=== PATIENT | female | born 1985 | race Caucasian/White ===

== ENCOUNTER 2021-02-15 20:11 | Emergency (ER) | payer SELFPAY ==
[~2021-02-15] VITALS: Ht 144.8 cm; Wt 73.0 kg
[~2021-02-15 20:11] MED LIST: METF-414
[2021-02-15] MEDS ORDERED: SODIUM CHLORIDE 0.9% 1,000 ML IV ONE (22:30)
[2021-02-15 22:56] LABS: BASOPHILS % 0.8 % (0.0-2.0); EOSINOPHILS % 2.1 % (0.0-5.0); HEMATOCRIT. 36.2 % (36.0-48.0); HEMOGLOBIN. 12.7 g/dL (12.0-16.0); LYMPHOCYTES % 37.5 % (20.0-50.0); MEAN CORPUSCULAR VOLUME 94.4 fL (81.0-99.0); MONOCYTES % 7.1 % (2.0-8.0); NEUTROPHILS % 52.5 % (40.0-76.0); PLATELET 243 x1000/uL (130-400); RED BLOOD CELL COUNT 3.83 mill/uL (4.2-5.4); RED CELL DISTRIBUTION WIDTH 12.5 % (11.6-14.6)
[2021-02-15 23:02] LABS: CHLORIDE 104 mEq/L (98-107)
[2021-02-15 23:06] LABS: PROTHROMBIN TIME 10.9 sec (9.6-11.0)
[2021-02-15 23:26] LABS: B-HCG QUANTITATIVE 50957 mIU/mL (<3)
[2021-02-15 23:30] VITALS: BP 115/69
[2021-02-15 23:45] LABS: CLARITY URINE CLEAR (CLEAR); COLOR URINE YELLOW (YELLOW); KETONES URINE TRACE (NEGATIVE); LEUKOCYTE ESTERASE URINE NEGATIVE (NEGATIVE); NITRITE URINE NEGATIVE (NEGATIVE); OCCULT BLOOD URINE NEGATIVE (NEGATIVE); PH URINE 5.5 (4.5-8.0); PROTEIN URINE NEGATIVE (NEGATIVE); SPECIFIC GRAVITY URINE 1.036 (1.005-1.030)
[2021-02-15 23:56] LABS: *AMPHETAMINES SCREEN URINE NEGATIVE (NEGATIVE); *BARBITURATES SCREEN URINE NEGATIVE (NEGATIVE); *BENZODIAZEPINES SCREEN URINE NEGATIVE (NEGATIVE); *COCAINE SCREEN URINE NEGATIVE (NEGATIVE)
[2021-02-15 23:57] LABS: CANNABINOID URINE SCREEN NEGATIVE (NEGATIVE); METHADONE URINE SCREEN NEGATIVE (NEGATIVE); OPIATES URINE SCREEN NEGATIVE (NEGATIVE); PHENCYCLIDINE URINE SCREEN NEGATIVE (NEGATIVE)
== END 2021-02-16 01:03 | disposition home or self-care (01) ==
LOC: ER 20:11
DX: O26.891 Other specified pregnancy related conditions, first trimester (principal); E11.9 Type 2 diabetes mellitus without complications; Z98.890 Other specified postprocedural states
CPT/HCPCS: 36415; 76801; 80053; 80305; 81003; 81025; 84702; 85025; 85610; 86850; 86900; 86901; 99284; J7030

== ENCOUNTER 2021-02-17 19:20 | Emergency (ER) | payer SELFPAY ==
[~2021-02-17] VITALS: Ht 157.5 cm; Wt 82.0 kg
[2021-02-17] MEDS ORDERED: SODIUM CHLORIDE 0.9% 1,000 ML IV ONE (20:00)
[2021-02-17 20:53] LABS: BASOPHILS % 0.7 % (0.0-2.0); EOSINOPHILS % 1.8 % (0.0-5.0); HEMATOCRIT. 36.5 % (36.0-48.0); HEMOGLOBIN. 12.6 g/dL (12.0-16.0); LYMPHOCYTES % 37.8 % (20.0-50.0); MEAN CORPUSCULAR HEMOGLOBIN 32.8 pg (28.0-32.0); MEAN CORPUSCULAR VOLUME 94.7 fL (81.0-99.0); MEAN PLATELET VOLUME 9.3 fl (7.4-10.4); MONOCYTES % 7.5 % (2.0-8.0); NEUTROPHILS % 52.2 % (40.0-76.0); PLATELET 269 x1000/uL (130-400); RED BLOOD CELL COUNT 3.86 mill/uL (4.2-5.4); RED CELL DISTRIBUTION WIDTH 12.7 % (11.6-14.6)
[2021-02-17 20:59] LABS: CHLORIDE 105 mEq/L (98-107)
[2021-02-17 21:00] LABS: INR 0.9; PROTHROMBIN TIME 10.2 sec (9.6-11.0)
[2021-02-17 21:41] LABS: B-HCG QUANTITATIVE 49740 mIU/mL (<3)
[2021-02-17 21:44] LABS: CLARITY URINE CLEAR (CLEAR); COLOR URINE YELLOW (YELLOW); KETONES URINE NEGATIVE (NEGATIVE); LEUKOCYTE ESTERASE URINE NEGATIVE (NEGATIVE); NITRITE URINE NEGATIVE (NEGATIVE); OCCULT BLOOD URINE 1+ (NEGATIVE); PH URINE 6.5 (4.5-8.0); PROTEIN URINE NEGATIVE (NEGATIVE); SPECIFIC GRAVITY URINE 1.016 (1.005-1.030); UROBILINOGEN URINE 0.2 E.U./dL (0.2-1.0)
[2021-02-17 23:59] VITALS: BP 105/73
== END 2021-02-18 01:07 | disposition home or self-care (01) ==
LOC: ER 19:20
DX: O20.0 Threatened abortion (principal); O24.311 Unspecified pre-existing diabetes mellitus in pregnancy, first trimester; E11.65 Type 2 diabetes mellitus with hyperglycemia; Z3A.12 12 weeks gestation of pregnancy; Z98.890 Other specified postprocedural states
CPT/HCPCS: 36415; 76801; 80053; 81003; 81025; 84702; 85025; 85610; 86850; 86900; 86901; 96360; 99284; J7030

== ENCOUNTER 2021-07-04 07:27 | Inpatient (IN) | payer MEDICAID ==
[~2021-07-04] VITALS: Ht 144.8 cm; Wt 79.4 kg
[2021-07-04] MEDS ORDERED: MISOPROSTOL 100MCG TABLET VG SCH (08:15)
[2021-07-04] MEDS ORDERED: LIDOCAINE HCL 1% 20ML VIAL (Pyxis) INJ INFIL SCH (08:15)
[2021-07-04] MEDS ORDERED: NALOXONE HCL 0.4 MG/ML 1ML VIAL IM PRN (08:15)
[2021-07-04] MEDS ORDERED: BUTORPHANOL TARTRATE 2 MG/ML VIAL IV PRN (08:15)
[2021-07-04] MEDS ORDERED: AMPICILLIN 2GM in NS 100ML 100 ML IV SCH (09:00)
[2021-07-04 09:17] LABS: BASOPHILS % 0.6 % (0.0-2.0); EOSINOPHILS % 1.1 % (0.0-5.0); HEMATOCRIT. 32.6 % (36.0-48.0); MEAN CORPUSCULAR HEMOGLOBIN 29.9 pg (28.0-32.0); MEAN CORPUSCULAR VOLUME 88.5 fL (81.0-99.0); MEAN PLATELET VOLUME 10.3 fl (7.4-10.4); MONOCYTES % 6.3 % (2.0-8.0); PLATELET 160 x1000/uL (130-400); RED BLOOD CELL COUNT 3.69 mill/uL (4.2-5.4); RED CELL DISTRIBUTION WIDTH 12.4 % (11.6-14.6)
[2021-07-04 09:26] LABS: CLARITY URINE CLEAR (CLEAR); COLOR URINE YELLOW (YELLOW); KETONES URINE NEGATIVE (NEGATIVE); LEUKOCYTE ESTERASE URINE NEGATIVE (NEGATIVE); NITRITE URINE NEGATIVE (NEGATIVE); OCCULT BLOOD URINE NEGATIVE (NEGATIVE); PH URINE 6.5 (4.5-8.0); PROTEIN URINE 1+ (NEGATIVE); UROBILINOGEN URINE 0.2 E.U./dL (0.2-1.0)
[2021-07-04 09:31] LABS: INR 0.9; PARTIAL THROMBOPLASTIN TIME 27.9 sec (23.4-31.0); PROTHROMBIN TIME 10.1 sec (9.6-11.0)
[2021-07-04 09:48] LABS: *AMPHETAMINES SCREEN URINE NEGATIVE (NEGATIVE); *BARBITURATES SCREEN URINE NEGATIVE (NEGATIVE); *BENZODIAZEPINES SCREEN URINE NEGATIVE (NEGATIVE)
[2021-07-04 09:49] LABS: *COCAINE SCREEN URINE NEGATIVE (NEGATIVE); METHADONE URINE SCREEN NEGATIVE (NEGATIVE); OPIATES URINE SCREEN NEGATIVE (NEGATIVE); PHENCYCLIDINE URINE SCREEN NEGATIVE (NEGATIVE)
[2021-07-04 09:50] LABS: CANNABINOID URINE SCREEN NEGATIVE (NEGATIVE)
[2021-07-04] MEDS ORDERED: AZITHROMYCIN 500MG/250ML 250 ML IV SCH (12:00)
[2021-07-04 12:14] LABS: HEPATITIS B SURFACE ANTIGEN NEGATIVE
[2021-07-04] MEDS: BETAMETHASONE ACET/BETAMET 30 MG/5 ML VIAL IM SCH (13:23)
[2021-07-04] MEDS ORDERED: AMPICILLIN 1,000 MG in SODIUM CHLORIDE 0.9% 50 ML IV SCH (15:00)
[2021-07-04] MEDS: AMPICILLIN 2,000 MG in SODIUM CHLORIDE 0.9% 100 ML IV SCH (20:19)
[2021-07-04] MEDS: LACTATED RINGERS 1,000 ML IV SCH (22:11)
[2021-07-05] MEDS: AMPICILLIN 2,000 MG in SODIUM CHLORIDE 0.9% 100 ML IV SCH ×4 (02:15→20:22)
[2021-07-05] MEDS: LACTATED RINGERS 1,000 ML IV SCH ×2 (07:32→20:25)
[2021-07-05] MEDS ORDERED: INSULIN REGULAR (HUMULIN R) 300UNITS/3ML VIAL SUBCUT SCH ×3 (12:30→15:00)
[2021-07-05] MEDS ORDERED: BLOOD SUGAR DIAGNOSTIC STRIP TEST SCH ×2 (12:30→15:00)
[2021-07-05] MEDS: BETAMETHASONE ACET/BETAMET 30 MG/5 ML VIAL IM SCH (13:52)
[2021-07-05] MEDS ORDERED: METFORMIN HCL 500MG TABLET PO SCH (17:00)
[2021-07-05] MEDS ORDERED: AZITHROMYCIN 500MG in DEXTROSE 5% WATER 250ML IV SCH (17:30)
[2021-07-05] MEDS ORDERED: AZITHROMYCIN 500MG/250ML 250 ML IV SCH (17:30)
[2021-07-05] MEDS ORDERED: DOCUSATE SODIUM 100MG CAPSULE PO PRN (22:15)
[2021-07-05] MEDS ORDERED: INSULIN LISPRO 100 UNITS/ML SUBCUT SCH (23:15)
[2021-07-06] MEDS ORDERED: LACTATED RINGERS 1,000 ML IV SCH (00:45)
[2021-07-06] MEDS: AMPICILLIN 2,000 MG in SODIUM CHLORIDE 0.9% 100 ML IV SCH (01:45)
[2021-07-06] MEDS ORDERED: ACETAMINOPHEN 500MG TABLET PO NR (03:45)
[2021-07-06] MEDS ORDERED: AMOXICILLIN 250MG CAPSULE PO SCH (06:00)
[2021-07-06] MEDS ORDERED: INSULIN LISPRO 100 UNITS/ML SUBCUT SCH ×2 (06:30→09:00)
[2021-07-06] MEDS ORDERED: TERBUTALINE SULFATE 1MG/ML VIAL SUBCUT NR (07:00)
[2021-07-06 08:00] LABS: CHLORIDE 111 mEq/L (98-107)
[2021-07-06] MEDS ORDERED: ONDANSETRON HCL 4MG/2ML INJ ONE (08:30)
[2021-07-06] MEDS ORDERED: DEXAMETHASONE 4MG/ML 1ML VIAL ONE (08:30)
[2021-07-06] MEDS ORDERED: METOCLOPRAMIDE HCL 10MG/2ML VIAL ONE (08:30)
[2021-07-06] MEDS ORDERED: PHENYLEPHRINE HCL 10 MG/ML 1ML (IV VIAL) IV ONE (08:33)
[2021-07-06] MEDS ORDERED: EPHEDRINE SULFATE 50MG/ML VIAL ONE (08:33)
[2021-07-06] MEDS ORDERED: OXYTOCIN 10 UNITS/ML 1ML ONE (08:34)
[2021-07-06] MEDS ORDERED: MORPHINE SULFATE/PF 1MG/ML 10ML AMP ONE (08:35)
[2021-07-06] MEDS ORDERED: ERYTHROMYCIN EC 250MG TABLET PO SCH ×2 (09:00→12:00)
[2021-07-06] MEDS ORDERED: FENTANYL CITRATE/PF 50MCG/ML 2ML VIAL ONE (10:52)
[2021-07-06] MEDS ORDERED: MIDAZOLAM HCL 2 MG/2 ML VIAL ONE (10:57)
[2021-07-06] MEDS ORDERED: PROPOFOL 200MG/20ML VIAL IV ONE (10:57)
[2021-07-06] MEDS ORDERED: KETAMINE HCL 50 MG/ML 10ML ONE (10:58)
[2021-07-06] MEDS ORDERED: HYDROMORPHONE HCL/PF 2MG/ML (OR) ONE (11:26)
[2021-07-06] MEDS ORDERED: ONDANSETRON HCL 4MG/2ML INJ IV PRN (11:30)
[2021-07-06] MEDS ORDERED: IBUPROFEN 400MG TABLET PO PRN (11:30)
[2021-07-06] MEDS ORDERED: BISACODYL 10MG SUPP PR PRN (11:30)
[2021-07-06] MEDS ORDERED: LANOLIN OINT 7GM TUBE TOP PRN (11:30)
[2021-07-06] MEDS ORDERED: RHO(D) IMMUNE GLOBULIN 300 MCG/SYR IM PRN (11:30)
[2021-07-06] MEDS ORDERED: HYDROCODONE/ACETAMINOPHEN 5/325MG TABLET PO PRN (11:30)
[2021-07-06] MEDS ORDERED: DEXT 5%/LR + PITOCIN 20UNITS/L 1,000 ML IV SCH (11:30)
[2021-07-06] MEDS ORDERED: DIPHENHYDRAMINE 25MG CAPSULE PO PRN (11:30)
[2021-07-06 14:00] VITALS: BP 131/63
[2021-07-06 14:30] VITALS: BP 143/52
[2021-07-06 15:00] VITALS: BP 126/53
[2021-07-06 16:37] VITALS: BP 136/50
[2021-07-06] MEDS ORDERED: CEFAZOLIN 1000MG PREMIX 50 ML IV ONE (17:15)
[2021-07-06] MEDS ORDERED: CEFAZOLIN 2,000 MG in DEXT 5% WATER 100 ML IV NR (18:00)
[2021-07-06 20:00] VITALS: BP 107/46
[2021-07-06] MEDS: DOCUSATE SODIUM 100MG CAPSULE PO SCH (20:06)
[2021-07-07] VITALS: BP 112/50
[2021-07-07 04:19] VITALS: BP 101/53
[2021-07-07 07:30] VITALS: BP 113/50
[2021-07-07 08:05] LABS: BASOPHILS % 0.5 % (0.0-2.0); EOSINOPHILS % 0.1 % (0.0-5.0); HEMATOCRIT. 24.1 % (36.0-48.0); LYMPHOCYTES % 37.2 % (20.0-50.0); MEAN CORPUSCULAR HEMOGLOBIN 29.8 pg (28.0-32.0); MEAN CORPUSCULAR VOLUME 90.2 fL (81.0-99.0); MEAN PLATELET VOLUME 10.6 fl (7.4-10.4); MONOCYTES % 9.3 % (2.0-8.0); NEUTROPHILS % 52.9 % (40.0-76.0); PLATELET 154 x1000/uL (130-400); RED BLOOD CELL COUNT 2.68 mill/uL (4.2-5.4); RED CELL DISTRIBUTION WIDTH 12.6 % (11.6-14.6)
[2021-07-07] MEDS: ACETAMINOPHEN WITH CODEINE 300/30MG TABLET PO PRN ×3 (09:44→20:10)
[2021-07-07] MEDS: PRENATAL VIT/FE FUMARATE/FA TABLET PO SCH (09:44)
[2021-07-07] MEDS ORDERED: BISACODYL 5MG TABLET PO PRN ×2 (13:45)
[2021-07-07] MEDS ORDERED: DULOXETINE HCL 20MG DR CAPSULE PO ONE (13:45)
[2021-07-07 16:00] VITALS: BP 111/60
[2021-07-07] MEDS ORDERED: FERROUS SULFATE 325MG TABLET PO SCH (17:30)
[2021-07-07 20:00] VITALS: BP 135/63
[2021-07-07] MEDS: BISACODYL 5MG TABLET PO SCH (20:00)
[2021-07-07] MEDS ORDERED: NALOXONE HCL 0.4MG/ML VIAL IV PRN (20:00)
[2021-07-07] MEDS: DOCUSATE SODIUM 100MG CAPSULE PO SCH (20:17)
[2021-07-08 00:12] VITALS: BP 130/60
[2021-07-08] MEDS: ACETAMINOPHEN WITH CODEINE 300/30MG TABLET PO PRN ×2 (02:03→06:11)
[2021-07-08 04:20] VITALS: BP 139/72
[2021-07-08] MEDS: BISACODYL 5MG TABLET PO SCH (09:46)
[2021-07-08] MEDS: PRENATAL VIT/FE FUMARATE/FA TABLET PO SCH (09:46)
== END 2021-07-08 13:00 | disposition home or self-care (01) | DRG 540 ==
LOC: OBSVTOIN 07:27 → 8 EST LDRP 07:27 → 8EST 07-06 13:38
PROVIDERS: ADMIT Obstetrics & Gynecology; ATTEND Obstetrics & Gynecology
PROC: 10D00Z1 Extraction of Products of Conception, Low, Open Approach (ICD-10-PCS; principal; 2021-07-06)
PROC: 0UN90ZZ Release Uterus, Open Approach (ICD-10-PCS; 2021-07-06)
DX: O42.913 Preterm premature rupture of membranes, unspecified as to length of time between rupture and onset of labor, third trimester (principal); O24.92 Unspecified diabetes mellitus in childbirth; O60.14X0 Preterm labor third trimester with preterm delivery third trimester, not applicable or unspecified; O99.214 Obesity complicating childbirth; Z20.822 Contact with and (suspected) exposure to COVID-19; O34.211 Maternal care for low transverse scar from previous cesarean delivery; E66.01 Morbid (severe) obesity due to excess calories; Z37.0 Single live birth; Z3A.33 33 weeks gestation of pregnancy; Z79.84 Long term (current) use of oral hypoglycemic drugs
CPT/HCPCS: 36415; 76805; 76818; 80048; 80305; 81003; 82947; 82962; 83036; 85025; 86592; 86703; 86762; 86850; 86900; 86920; 87340; 87426; 88307; 96372; 99281; G0378; J0290; J0456; J0690; J0702; J1100; J1170; J1815; J2250; J2274; J2370; J2405; J2590; J2704; J2765; J3010; J3105; J3490; J7050; J7060; J7120

== ENCOUNTER 2022-09-23 23:31 | Emergency (ER) | payer MEDICAID ==
[~2022-09-23] VITALS: Ht 154.9 cm; Wt 71.8 kg
[2022-09-23 23:49] VITALS: BP 110/74
[2022-09-24] MEDS ORDERED: IBUPROFEN 600MG TABLET PO ONE (01:15)
== END 2022-09-24 03:30 | disposition home or self-care (01) ==
LOC: ER 23:31
DX: E11.65 Type 2 diabetes mellitus with hyperglycemia (principal); R51.9 Headache, unspecified; R42 Dizziness and giddiness; Z79.84 Long term (current) use of oral hypoglycemic drugs; Z98.890 Other specified postprocedural states
CPT/HCPCS: 81025; 82962; 99282

== ENCOUNTER 2022-11-03 21:28 | Emergency (ER) | payer MEDICAID ==
[~2022-11-03] VITALS: Ht 144.8 cm; Wt 76.0 kg
[2022-11-03 21:36] VITALS: BP 126/88
[2022-11-04 00:14] LABS: BASOPHILS % 0.8 % (0.0-2.0); EOSINOPHILS % 1.8 % (0.0-5.0); HEMATOCRIT. 40.9 % (36.0-48.0); HEMOGLOBIN. 13.7 g/dL (12.0-16.0); LYMPHOCYTES % 44.5 % (20.0-50.0); MEAN CORPUSCULAR HEMOGLOBIN 29.6 pg (28.0-32.0); MEAN CORPUSCULAR VOLUME 88.4 fL (81.0-99.0); MEAN PLATELET VOLUME 8.4 fl (7.4-10.4); MONOCYTES % 8.1 % (2.0-8.0); NEUTROPHILS % 44.8 % (40.0-76.0); PLATELET 256 x1000/uL (130-400); RED BLOOD CELL COUNT 4.62 mill/uL (4.2-5.4); RED CELL DISTRIBUTION WIDTH 14.2 % (11.6-14.6)
[2022-11-04 00:17] LABS: CHLORIDE 102 mEq/L (98-107)
[2022-11-04 00:32] LABS: ETHANOL BLOOD < 10 mg/dL
== END 2022-11-03 23:30 | disposition left against medical advice (07) ==
LOC: ER 21:28
DX: Z53.21 Procedure and treatment not carried out due to patient leaving prior to being seen by health care provider (principal)
CPT/HCPCS: 36415; 71045; 80053; 80320; 82962; 84443; 84484; 85025; G0480

== ENCOUNTER 2022-11-05 21:32 | Emergency (ER) | payer MEDICAID ==
[~2022-11-05] VITALS: Ht 144.8 cm; Wt 75.5 kg
[2022-11-06] MEDS ORDERED: IBUPROFEN 600MG TABLET PO ONE (00:15)
[2022-11-06] MEDS ORDERED: POLY15DR31 LEFTEYE (00:25)
[2022-11-06] MEDS ORDERED: ACYC200C31 MT (00:25)
[2022-11-06] MEDS ORDERED: P20 MT (00:25)
[2022-11-06] MEDS ORDERED: IBUP-2029 MT (00:44)
[2022-11-06 01:45] VITALS: BP 140/86
== END 2022-11-06 01:46 | disposition home or self-care (01) ==
LOC: ER 21:32
DX: G51.0 Bell's palsy (principal); E11.9 Type 2 diabetes mellitus without complications; Z98.890 Other specified postprocedural states
CPT/HCPCS: 93005; 99283

== ENCOUNTER 2024-04-15 15:21 | Emergency (ER) | payer SELFPAY ==
[~2024-04-15] VITALS: Ht 160 cm; Wt 77.0 kg
[~2024-04-15 15:21] MED LIST changes: +ACYC200C31 MT; +IBUP-2029 MT; -METF-414; +P20 MT; +POLY15DR31 LEFTEYE
[2024-04-15 15:24] VITALS: O2SAT 99
[2024-04-15] MEDS: SODIUM CHLORIDE 0.9% 1000ML BAG (SEPSIS BOLUS) IV ONE (16:09)
[2024-04-15] MEDS: ACETAMINOPHEN 325MG TABLET PO STA (16:25)
[2024-04-15] MEDS: CEFTRIAXONE 2GM/50ML 50 ML IV ONE (16:26)
[2024-04-15 16:27] LABS: HEMATOCRIT. 31.8 % (36.0-48.0); HEMOGLOBIN. 10.4 g/dL (12.0-16.0); MEAN CORPUSCULAR HEMOGLOBIN 28.7 pg (28.0-32.0); MEAN CORPUSCULAR HGB CONC 32.7 g/dL (31.0-37.0); MEAN CORPUSCULAR VOLUME 87.6 fL (81.0-99.0); MEAN PLATELET VOLUME 8.6 fl (7.4-10.4); PLATELET 200 x1000/uL (130-400); RED BLOOD CELL COUNT 3.63 mill/uL (4.2-5.4); RED CELL DISTRIBUTION WIDTH 14.8 % (11.6-14.6); WHITE BLOOD COUNT 10.2 x1000/uL (4.5-11.0)
[2024-04-15 16:29] LABS: DIFFERENTIAL COMMENT 1
[2024-04-15] MEDS: SODIUM CHLORIDE 0.9% 1,000 ML IV ONE (16:29)
[2024-04-15 16:30] LABS: CHLORIDE 106 mEq/L (98-107); SODIUM 132 mEq/L (136-145)
[2024-04-15 16:32] LABS: CALCIUM 8.5 mg/dL (8.7-10.4); CARBON DIOXIDE 17 mEq/L (21-32)
[2024-04-15 16:34] LABS: PROTHROMBIN TIME 11.5 sec (9.6-11.0)
[2024-04-15 16:37] LABS: CREATININE 0.4 mg/dL (0.6-1.0); GLUCOSE 265 mg/dL (70-105)
[2024-04-15 16:45] LABS: PLATELET ESTIMATE NORMAL
[2024-04-15 17:28] LABS: UREA NITROGEN BLOOD < 5 mg/dL (9-23)
[2024-04-15] MEDS: KCL 20MEQ/100ML PREMIX 100 ML IV SCH (18:18)
[2024-04-15 18:31] LABS: CLARITY URINE CLOUDY (CLEAR); COLOR URINE YELLOW (YELLOW); GLUCOSE URINE 3+ (NEGATIVE); KETONES URINE 3+ (NEGATIVE); LEUKOCYTE ESTERASE URINE 2+ (NEGATIVE); NITRITE URINE NEGATIVE (NEGATIVE); OCCULT BLOOD URINE 1+ (NEGATIVE); PH URINE 5.5 (4.5-8.0); PROTEIN URINE 2+ (NEGATIVE); SPECIFIC GRAVITY URINE 1.014 (1.005-1.030); UROBILINOGEN URINE 0.2 E.U./dL (0.2-1.0)
[2024-04-15 18:47] LABS: BACTERIA URINE 2+; SQUAMOUS EPITHELIAL CELL URINE 2+ /lpf (RARE/1+)
[2024-04-15 18:48] LABS: WBC URINE 25-50 /hpf (0-2)
[2024-04-15] MEDS ORDERED: PREN-183 MT (19:10)
[2024-04-15] MEDS ORDERED: CEPH500C2 MT (19:10)
[2024-04-15] MEDS ORDERED: ACET-2708 MT (19:10)
[2024-04-15 22:23] VITALS: BP 110/62; PULSE 99; RESP 20; TEMP 98.3
== END 2024-04-15 22:26 | disposition home or self-care (01) ==
LOC: ER 15:21
DX: O23.32 Infections of other parts of urinary tract in pregnancy, second trimester (principal); R50.9 Fever, unspecified; E11.9 Type 2 diabetes mellitus without complications; Z98.890 Other specified postprocedural states; Z79.899 Other long term (current) drug therapy; Z3A.20 20 weeks gestation of pregnancy; Z20.822 Contact with and (suspected) exposure to COVID-19
CPT/HCPCS: 99285; 96365; 96361; 76805; 87426; 80048; 81003; 83880; 83605; 85025; 85610; 87040; 87086; 87804 ×2; 36415; 84145; 93005; J0696; J3480; J7030